=== PATIENT | male | born 1965 | race African-American/Black ===

== ENCOUNTER 2019-09-10 09:09 | Outpatient (CLI) | payer OTHER | END 2019-09-10 09:10 | disposition home or self-care (01) | LOC: CTENTCT 09:09 | PROVIDERS: ATTEND Otolaryngology Plastic Surgery within the Head & Neck | DX: J32.9 Chronic sinusitis, unspecified (principal) | CPT/HCPCS: 70486 ==

== ENCOUNTER 2019-09-18 05:54 | Day surgery (SDC) | payer OTHER ==
[2019-09-17 10:49] VITALS: BMI 38.2
[2019-09-18] MEDS ORDERED: Midazolam HCl 2 mg/2 ml Vial ONE (08:30)
[2019-09-18] MEDS ORDERED: Fentanyl 100 MCG/2 ML VIAL ONE ×3 (08:30→10:16)
[2019-09-18] MEDS ORDERED: Oxymetazoline HCl 0.05% ( 15 ML ) ONE (08:31)
[2019-09-18] MEDS ORDERED: Ferric Subsulfate (ASTRINGYN) 8 ML VIAL ONE (08:59)
[2019-09-18] MEDS ORDERED: Morphine 4 MG/ML VIAL ONE (10:08)
[2019-09-18] MEDS ORDERED: Morphine 2 MG/ML SYRINGE ONE (10:29)
[2019-09-18] MEDS ORDERED: hydrALAZINE 20 MG/ML VIAL ONE (10:51)
[2019-09-18] MEDS ORDERED: Hydrocodone-Acetamin 15 ML UDCUP ONE ×2 (11:12→12:21)
[2019-09-18] MEDS ORDERED: Lidocaine 1% PF 5 ML VIAL ONE (12:00)
[2019-09-18] MEDS ORDERED: Dexamethasone 20 MG/5 ML VIAL ONE (12:00)
[2019-09-18] MEDS ORDERED: Ondansetron PF 4 MG/2 ML Vial ONE (12:00)
[2019-09-18] MEDS ORDERED: Rocuronium Bromide 10 MG/ML (10ML VIAL) ONE (12:00)
[2019-09-18] MEDS ORDERED: Glycopyrrolate 0.2 MG/ML 5 ML SYRINGE ONE (12:00)
[2019-09-18] MEDS ORDERED: PROPOFOL 200 MG/20 ML VIAL ONE (12:00)
--- NOTE | 2019-09-18 16:55 | EKG ---
Test Reason : PREOP Blood Pressure : / mmHG Vent. Rate : 063 BPM Atrial Rate : 063 BPM P-R Int : 200 ms QRS Dur : 108 ms QT Int : 388 ms P-R-T Axes : 043 -13 014 degrees QTc Int : 397 ms Normal sinus rhythm Non-specific intra-ventricular conduction delay Inferior infarct , age undetermined cannot be excluded Abnormal ECG Confirmed by PRASANNA ANTHONY ([id number]) on 09/18/2019 4:55:23 PM Referred By: SANTOSH Confirmed By:PRASANNA ANTHONY
--- NOTE | 2019-09-19 14:18 | OP ---
DATE OF PROCEDURE: 09/18/2019 PREOPERATIVE DIAGNOSES: 1. Chronic rhinosinusitis. 2. Chronic adenotonsillitis. 3. Adenotonsillar hypertrophy. 4. Bilateral inferior turbinate hypertrophy. POSTOPERATIVE DIAGNOSES: 1. Chronic rhinosinusitis. 2. Chronic adenotonsillitis. 3. Adenotonsillar hypertrophy. 4. Bilateral inferior turbinate hypertrophy. PROCEDURES PERFORMED: 1. Bilateral endoscopic sinus surgery, total ethmoidectomies. 2. Bilateral endoscopic sinus surgery, maxillary antrostomies. 3. Bilateral endoscopic sinus surgery, frontal sinusotomies. 4. Tonsillectomy and adenoidectomy. 5. Bilateral inferior turbinate submucosal resection. ESTIMATED BLOOD LOSS: 10 mL. COMPLICATIONS: None. ANESTHESIA: GETA. PROCEDURE IN DETAIL: After consent was obtained, the patient was identified, brought to the operating room, and placed on the operating table in the supine position. General endotracheal anesthesia and intravenous access were obtained and we proceeded with positioning the patient for oropharyngeal surgery. Oropharyngeal exposure was obtained with a Yolanda-Arturo mouth gag after a head drape was placed and secured with a towel clip. The Yolanda-Arturo mouth gag was then suspended from the Valenzuela tray and palatal elevation was achieved with a red rubber catheter. The right tonsil was addressed first. We used a curved Allis to grasp the tonsil and retract it medially as an anterior pillar incision was made. The retrotonsillar fascial plane was then established and blunt dissection was performed with the suction cautery. Blood vessels were anticipated, identified, and cauterized as they were encountered. Ultimately, dissection was carried to the posterior tonsillar pillar mucosa which was incised hemostatically, as well as the base of tongue connection. The tonsil was then passed off as a specimen and bleeding points within the tonsillar bed were cauterized under direct visualization. We subsequently turned our attention to the contralateral side, where using a similar technique, a near identical procedure was performed. Again, the tonsil was grasped and retracted medially with a curved Allis. The retrotonsillar fascial plane was established and while the anterior pillar was retracted medially. The hemostatic blunt dissection of the tonsil with a suction cautery was performed with blood vessels anticipated, identified, and cauterized as they were encountered. Again, dissection continued to the base of tongue and posterior tonsillar pillar mucosa which was incised in a hemostatic fashion. The tonsillar beds were then carefully inspected and bleeding points were identified and cauterized with a suction cautery. After this portion of the procedure, hemostasis was completely obtained. Under direct mirror visualization, we visualized the adenoid pad. Under direct mirror visualization, we removed the bulk of the adenoid tissue with the adenoid curette. We then packed the nasopharynx for an appropriate period of time with [id number]-[id number] tonsillar sponges. After a period of observation, we removed the pack. Under indirect mirror visualization, we obtained hemostasis and vaporization of residual adenoid tissue with electrocautery. The patient's oral cavity was copiously irrigated with iced saline and subsequently suctioned. After completion of the procedure, the nasal cavity and oropharynx were irrigated and suctioned as were the gastric contents. The patient was then awakened and transferred to the recovery room where the patient remained in stable condition prior to discharge to Day Stay. Following this, 1% lidocaine with 1:100,000 epinephrine were injected into the middle turbinates and lateral nasal wall bilaterally. Following this, the 0-degree endoscope was used to visualize the middle turbinate and the middle turbinate was medially fractured using a [place] elevator. Following this, the uncinate process was identified and was examined. The uncinate process was noted to be inflamed and laterally displaced bilaterally. Following this, a ball-ended probe was used to anteriorly fracture the uncinate process bilaterally. Following this, the 0-degree microdebrider and the up-biting Blakesley forceps were used to remove the uncinate process bilaterally. Following this, the natural maxillary sinus ostia was identified with the 0-degree endoscope and the ball-ended probe. The natural maxillary ostia were then widened using a 40-degree microdebrider and the straight Blakesley forceps bilaterally. Following this, the ethmoidal bulla was identified bilaterally. A 0-degree microdebrider was used to puncture the ethmoidal bulla on its medial and inferior aspect bilaterally. Following this, the 0-degree microdebrider and the up-biting Blakesley forceps were used to remove the ethmoidal bulla. Following this, the grand lamella was identified posterior to this area and was punctured using the 0-degree microdebrider bilaterally. Following this, the ethmoidal cells were opened from the posterior to the anterior using the 0-degree microdebrider, the 40-degree microdebrider and the up-biting Blakesley forceps bilaterally. Following this, the 45-degree endoscope and the 40-degree microdebrider blade were used to further remove the anterior ethmoidal cells to the level of the frontal sinus recess bilaterally. Following this, 45-degree endoscope was then advanced into the middle meatus and the 40-degree microdebrider blade and up-biting Blakesley forceps were used to further open the anterior ethmoidal cells bilaterally. Following this, the frontal sinus ostia was identified bilaterally and was widened using the 40-degree microdebrider blade. Following this, the nasal cavity was irrigated. NasoPore packing was placed within the middle meatus bilaterally. Following this, the inferior turbinates were then punctured on the anterior and inferior aspect using a submucosal microdebrider blade and submucosal resection was performed of the anterior and inferior portions of the inferior turbinates bilaterally. The patient tolerated the procedure well. Job ID: [id number]
== END 2019-09-18 13:35 | disposition home or self-care (01) ==
LOC: SDC 05:54
PROVIDERS: ATTEND Otolaryngology Plastic Surgery within the Head & Neck
PROC: 099S8ZZ Drainage of Right Frontal Sinus, Via Natural or Artificial Opening Endoscopic (ICD-10-PCS; principal; 2019-09-18)
PROC: 0CTPXZZ Resection of Tonsils, External Approach (ICD-10-PCS; principal; 2019-09-18)
PROC: 09TL0ZZ Resection of Nasal Turbinate, Open Approach (ICD-10-PCS; principal; 2019-09-18)
PROC: 099T8ZZ Drainage of Left Frontal Sinus, Via Natural or Artificial Opening Endoscopic (ICD-10-PCS; principal; 2019-09-18)
PROC: 0CTQXZZ Resection of Adenoids, External Approach (ICD-10-PCS; principal; 2019-09-18)
PROC: 09TV8ZZ Resection of Left Ethmoid Sinus, Via Natural or Artificial Opening Endoscopic (ICD-10-PCS; principal; 2019-09-18)
PROC: 09TU8ZZ Resection of Right Ethmoid Sinus, Via Natural or Artificial Opening Endoscopic (ICD-10-PCS; principal; 2019-09-18)
PROC: 099Q8ZZ Drainage of Right Maxillary Sinus, Via Natural or Artificial Opening Endoscopic (ICD-10-PCS; principal; 2019-09-18)
PROC: 099R8ZZ Drainage of Left Maxillary Sinus, Via Natural or Artificial Opening Endoscopic (ICD-10-PCS; principal; 2019-09-18)
DX: J32.9 Chronic sinusitis, unspecified (principal); J34.3 Hypertrophy of nasal turbinates; J35.03 Chronic tonsillitis and adenoiditis; K13.79 Other lesions of oral mucosa; I11.9 Hypertensive heart disease without heart failure; E78.5 Hyperlipidemia, unspecified; K21.9 Gastro-esophageal reflux disease without esophagitis; J30.9 Allergic rhinitis, unspecified; Z79.899 Other long term (current) drug therapy; Z91.013 Allergy to seafood
CPT/HCPCS: 88304; 93005; 93010; J0131; J0360; J1100; J2001; J2250; J2270; J2405; J2704; J3010

== ENCOUNTER 2021-03-19 17:30 | Outpatient (CLI) | payer OTHER | END 2021-03-19 17:31 | disposition home or self-care (01) | LOC: SLEEPLAB 17:30 | PROVIDERS: ATTEND Internal Medicine | DX: G47.33 Obstructive sleep apnea (adult) (pediatric) (principal) | CPT/HCPCS: 95806 ==

== ENCOUNTER 2021-05-12 19:30 | Outpatient (CLI) | payer OTHER | END 2021-05-12 19:31 | disposition home or self-care (01) | LOC: SLEEPLAB 19:30 | PROVIDERS: ATTEND Internal Medicine | DX: G47.33 Obstructive sleep apnea (adult) (pediatric) (principal); I10 Essential (primary) hypertension; R06.83 Snoring; G47.10 Hypersomnia, unspecified; E66.9 Obesity, unspecified; Z68.41 Body mass index [BMI] 40.0-44.9, adult | CPT/HCPCS: 95811 ==